=== PATIENT | female | born 1980 | race Caucasian/White ===

== ENCOUNTER 2024-02-18 08:37 | Inpatient (IN) | payer BC, MEDICARE, OTHER ==
[2024-02-18 08:43] LABS: Specific Gravity 1.018 (1.005-1.030)
[2024-02-18] MEDS: Ringers Lactate 1,000 ML IV ONE ×2 (09:30→17:00)
[2024-02-18] MEDS ORDERED: FENTANYL CITR 100 MCG/2 ML ONE (12:02)
[2024-02-18] MEDS ORDERED: propofoL 200 MG/20 ML VIAL IV ONE (12:02)
[2024-02-18] MEDS ORDERED: LIDOCAINE 2% MPF 5 ML VIAL ONE (12:02)
[2024-02-18] MEDS ORDERED: ONDANSETRON 4 MG/2 ML VIAL ONE ×2 (12:02→16:31)
[2024-02-18] MEDS ORDERED: ROCURONIUM 50 MG/5 ML VIAL IV ONE ×2 (12:02→13:30)
[2024-02-18] MEDS ORDERED: MIDAZOLAM HCL 2 MG/2 ML INJ ONE (12:02)
[2024-02-18] MEDS: SUGAMMADEX SODIUM 200 MG/2 ML VIAL IV ONE (12:12)
[2024-02-18] MEDS: HYDROMORPHONE HCL 2 MG/ML inj ONE (12:13)
[2024-02-18] MEDS ORDERED: dexAMETHasone 10 MG/ML VIAL ONE (13:00)
[2024-02-18] MEDS: CEFAZOLIN SODIUM 2 GM/VIAL ONE (13:00)
[2024-02-18] MEDS ORDERED: GLYCOPYRROLATE 0.2 MG/ML SYR ONE (13:03)
[2024-02-18] MEDS ORDERED: Phenylephrine HCl 10 MG/ML 1 ML VIAL ONE (13:12)
[2024-02-18] MEDS ORDERED: EPHEDRINE SULF 50 MG/ML VIAL ONE (13:12)
[2024-02-18] MEDS ORDERED: HYDROMORPHONE HCL 1 MG/ML INJ IV PRN (17:49)
--- NOTE | 2024-02-18 18:30 | P.OP ---
Date of Service: 02/18/24 Preoperative diagnoses: Chronic/persistent E. coli UTI Atrophic left kidney Poorly functioning left kidney, 10% Postoperative diagnoses: Chronic/persistent E. coli UTI Atrophic left kidney Poorly functioning left kidney, 10% Principal procedures: Left laparoscopic simple nephrectomy Indication for procedures: The patient presented to the urology clinic having been seen by an outside urologist with chronic/persistent and recurrent UTIs. She had undergone prior ureteroscopic surgical intervention for obstructive ureterolithiasis, and had persistence of obstruction associated with a proximal left ureteral calculus. During this time, she was noted to have the same E. coli UTI that was occasionally symptomatic. MAG3 Lasix renography demonstrated minimal function at around 10%, and the kidney was significantly atrophic with thinning of the cortex. No evidence of any bladder abnormality or abnormality of her contralateral, right, kidney. As a result, she was counseled by the outside urologist, and I concurred with that opinion, that the kidney was a source likely of chronic infection, and given its poor function, removal of the kidney was her best option. Procedure note: The patient was consented in the preoperative holding area before being transferred to the operative suite where general anesthesia was induced. She was given Ancef 2 g IV antimicrobial prophylaxis, and pneumoboots were provided for DVT prophylaxis. A urethral Baptiste catheter was placed into her bladder, and a OG tube was placed. She was positioned with a neuro gel roll beneath her left flank at the hips, with an axillary roll placed beneath her right axilla. Her arms were placed across to her chest outstretched onto the armboard, cradling a couple of pillows. She was secured using tape to the table, and the table was rotated all the way to the right and then all the way back to the left to ensure she was positioned adequately and not moving. Once we were happy with the positioning, 1010 drapes were used to isolate the region of the abdomen of interest all the way down to the pubic symphysis, beneath the abdominal fat pad, and all the way over to the tip of the 12th rib and above the xiphoid process. ChloraPrep was used to prep the entirety of the area, and towels were used to drape the area off. The remainder of the fluid impermeable drapes were then placed, and the laparoscopic equipment was positioned accordingly. The case has begun using a Veress needle inserted through Crowe's point down through the subcutaneous tissues and the 2 layers of the abdominal aponeuroses in order to gain access into the peritoneal cavity. Aspiration and irrigation using a drop of saline was performed to confirm appropriate positioning of the Veress needle. Then, using CO2 insufflation, appropriate insufflation pressures were obtained at low flow, so we increased the flow to high flow targeting a pressure of 15 mmHg. Once her abdomen adequately distended, the left kidney was targeted by delineating the xiphoid process and the subcostal margin, shifting the traditional laparoscopic port sites over into the lateral aspect of her left upper abdomen. A 5 mm assistant professor of criminal justice trocar site was placed several centimeters beneath the xiphoid under direct vision using a 0 degree 5 mm lens. The remaining 12 mm trocars were placed lateral to the umbilicus and in the left lateral quadrant under direct vision. A few adhesions were noted in the infraumbilical midline but they were not in the way. As a result, the case was begun using the LigaSure and [place] laparoscopic graspers to divide a descending colonic adhesion present in the left upper quadrant. I then divided the line of Toldt taken down into the pelvic region all the way up to the splenic flexure, releasing the colon medially off the anterior surface of Gerota's. The spleen was reflected in the process, and the pancreas was Beneath a thick fat pad. I then continued dissecting the colon and its mesenteric layers off of the anterior surface of Gerota's fascia until the gonadal vessels and ureter was identified to the left kidney. I then elevated the gonadal vein and found the ureter beneath it. I attempted to spare the gonadal vein by creating a hiatus and the tissues above it and bringing the ureter above it through that hiatus, but the gonadal vessel did begin to bleed; so a 5 mm clip school coordinator was used to ligate and divide the gonadal vessel to stop it from bleeding. I then continued to traced the ureter and the gonadal vessels all the way up to the junction of the left renal vein, elevating the kidney posteriorly all the way down to psoas fascia. I then dissected posterior to the renal vein searching for the renal artery. The artery was in a bit of a challenging position just beneath the upper border of the left renal vein and traversing between the branches of the vein which was tripartite. So extensive dissection was required in order to separate and identify the renal artery from the remainder of the veins branches, then I utilized a SHAWNA stapler with a 45 mm vascular load to ligate and divide the renal artery successfully. I then utilized a similar 45 mm vascular load to ligate and divide the left renal vein. Metal clips were applied to the tag end of the divided tissue before dividing the remnant attachment using the LigaSure. I then continued dividing and releasing the adrenal off of the anteromedial aspect of the left kidney, sparing the adrenal in its entirety. I then dissected between the anterior border of the kidney and the inferior border of the pancreatic fat pad, with injury Rhodus fascia on the surface of the kidney superio-medially in order to release the kidney in that location. I dissected this all the way to the anterolateral surface of the kidney before then turning my attention back toward the posterior surface of the kidney. Here I utilized metal clips to ligate, then I divided the ureter using the LigaSure. The lateral attachments to the pelvic sidewall were then divided similarly using the LigaSure until I met the previously dissected superior lateral aspect of the kidney. At this point, the kidney was ostensibly freed; so it was placed in an Endo Catch bag. I then decreased the pressure in the abdomen to 12 mmHg and surveyed the entire dissected space for any sign of active bleeding. No significant bleeding was noted. As a result, I took the patient out of the rotated right lateral decubitus position and essentially placed her near supine so that we might make an infraumbilical incision to extract the kidney. Quarter percent Marcaine was instilled subcutaneously and an incision line was marked to delineate an incision that was subsequently made to be about 8-10 cm in length. This was deepened through significant subcutaneous tissue and fat requiring deep trocars in order to get down to the fascial layers. The fascia was then divided ostensibly in the midline, and the subfascial muscularis layers were in order to visualize the putative midline and then elevated and divide the posterior layer of fascia. The peritoneum was then entered, and the CO2 was then decompressed from within. I then and decreased the size of the incision large enough to be able to insert my hand and and grasp the suture holding the Endo Catch bag, and that I was able to deliver the Endo Catch bag with the kidney inside out of the body. This was sent for pathologic analysis. We then utilized Jennifer clamps, a narrow malleable, and a #1 looped PDS suture in order to reapproximate the divided fascial layers in an en bloc fashion taking both the anterior and posterior layers of fascia. Once this was completed, I then reapproximated the thick layer of fat tissue using interrupted 3-0 Vicryl suture. I placed a Sparks drain beneath the 3-0 suture layer. Before closing the skin, we then reinsufflated the patient's abdomen, and I placed the camera back inside and surveyed the internal abdominal contents for any sign of active bleeding. The pressure used at this point was 8 mmHg. With no bleeding noted, we then increased the pressure back to 15 mmHg, and I utilized #1 PDS suture and a Rogelio Pack closure device in order to reapproximate the 12 mm trocar sites. I then placed some Courtney for added intra-abdominal hemostasis in the nephrectomy bed beneath the spleen, and then the abdomen was decompressed of CO2, and the trocars were removed. The Rogelio Pack sites were tied down successfully, and the skin and subcutaneous tissues were copiously irrigated with saline. Then, the skin was reapproximated using linda. Iodoform gauze was placed over the staple line along with gauze, and the Della drain site was covered with an ABD pad. She was then taken out of the right lateral decubitus position and laid back supine before being awakened from general anesthesia. She was then transferred to a stretcher and then transferred to the recovery room in good condition. Complications: None Discharge disposition: We would like her to follow-up in 10 to 14 days time to have the linda removed. She does live in the [facility]; so if it is difficult for her to return here to have the linda removed, perhaps there is a physician/surgeon there who might be willing to take them out for her. I will endeavor to remove the Sparks drain prior to her discharge, as long as the output overnight is minimal. Subsequent follow-up should then be established as a postop visit, which would then be either in about 10 to 14 days, if she is able to have the linda removed by physician near her home and have her vitals checked at that time. If not, I would like to see her in person. If a surgeon/physician removes her linda, perhaps a virtual visit would suffice.
--- OUTSIDE RECORDS SUMMARY | 2024-02-18 18:38 | XMS REPORT | Continuity of Care Document ---
Author Name Unknown Address [address] [facility] [place] [address] [facility] Address [address] [facility] [address] [place] [address] Care Team Providers Care Sculpture Conservator Name Role Phone DR SABRINA PATTERSON Primary Care Physician UnaPenelope Chau Attending Clinician Unavailable SABRINA PATTERSON Attending Clinician Unavailable Jorge Alberto Vela Attending Clinician Unavailable PAO PEREZ Attending Clinician Unavailable PAO PEREZ Attending Clinician Unavailable PAO PEREZ Admitting Clinician Unavailable Payers Payer Name Policy Type Policy Number Effective Date Expirati on Date Source [facility] 6 [id number] [facility] [id number] 1960 00:00:00 Problems Condition Name Condition Details Condition Category Status Onset Date Resolution Date Last Treatment Date Treating Clinician Comments Source [id number] Recurrent UTI Problem [facility] [id number] Left nephrolith iasis Problem [facility] [id number] Chronic pyelonephr itis Problem [facility] [id number] Left renal atrophy Problem [facility] [id number] Unspecifie d abdominal pain Problem [facility] [id number] Other chronic pain Problem [facility] [id number] Pyelonephr itis Problem [facility] Renal failure syndrome Kidney failure Problem [facility] Allergies, Adverse Reactions, Alerts Allergy Name Allergy Type Status Severity Reaction(s) Onset Date Inactive Date Treating Clinician Comments Source [place] [facility] Active Unknown [facility] (LUF/LI V/SA) Social History Social Habit Start Date Stop Date Quantity Comments Source History of Tobacco Use [facility] Sex Assigned At [facility] Smoking Status Start Date Stop Date Source Never smoker [facility] (LUF/JOIE/SA) Medications Ordered Medication Name Filled Medication Name Start Date Stop Date Current Medication? Ordering Clinician Indication Dosage Frequency Signature (SIG) Comments Components Source ibuprofen 800 MG Oral Tablet ibuprofen 800 MG Oral Tablet 08-22 14:59: 05 No pain 800mg 4xD orally 4 times per day for pain as needed. (as needed for [facility] cyclobenzap rine 10 mg tablet cyclobenzap rine 10 mg tablet 08-22 14:59: 03 No Muscle spasm 10mg 3xD orally 3 times per day for Muscle spasm as needed. (for muscle spasms) [facility] (LUF/LI V/SA) pantoprazol e 40 MG Delayed Release Oral Tablet pantoprazol e 40 MG Delayed Release Oral Tablet 08-22 14:44: 24 No 40mg 1xD orally daily [facility] l (LUF/LI V/SA) No Known Medications No Known Medications No [facility] Vital Signs Vital Name Observation Time Observation Value Comments S ource height 2023-12-27 13:45:00 61 [in_i] [facility] weight 2023-12-27 13:45:00 280 [lb_av] [facility] temperature 2023-12-27 13:45:00 97.0 [degF] Com mon [facility] bmi 2023-12-27 13:45:00 52.9 kg/m2 [facility] oximetry 2023-12-27 13:45:00 99 % [facility] respiratory rate 2023-12-27 13:45:00 18 /min [facility] blood pressure systolic 2023-12-27 13:45:00 125 mm[Hg] [facility] blood pressure diastolic 2023-12-27 13:45:00 76 mm[Hg] Common [facility] Height 2023-08-23 13:42:00 154.94 CM Weight 2023-08-23 13:42:00 130.5 KG height 2022-10-11 08:15:00 61 [in_i] [facility] weight 2022-10-11 08:15:00 285 [lb_av] Comm on [facility] bmi 2022-10-11 08:15:00 53.84 kg/m2 [facility] height 2022-09-07 15:00:00 61 [in_i] [facility] weight 2022-09-07 15:00:00 285 [lb_av] [facility] temperature 2022-09-07 15:00:00 98.6 [degF] Com mon [facility] bmi 2022-09-07 15:00:00 53.84 kg/m2 [facility] oximetry 2022-09-07 15:00:00 99 % [facility] respiratory rate 2022-09-07 15:00:00 18 /min [facility] blood pressure systolic 2022-09-07 15:00:00 147 mm[Hg] Common [facility] blood pressure diastolic 2022-09-07 15:00:00 82 mm[Hg] Common [facility] height 2022-06-15 14:30:00 61 [in_i] [facility] weight 2022-06-15 14:30:00 287 [lb_av] [facility] temperature 2022-06-15 14:30:00 97.1 [degF] Com mon [facility] bmi 2022-06-15 14:30:00 54.22 kg/m2 [facility] oximetry 2022-06-15 14:30:00 96 % [facility] respiratory rate 2022-06-15 14:30:00 18 /min [facility] blood pressure systolic 2022-06-15 14:30:00 114 mm[Hg] [facility] blood pressure diastolic 2022-06-15 14:30:00 77 mm[Hg] [facility] Heart Rate 2023-08-23 14:46:00 73 /min Replaced by [facility] (LUF/JOIE/SA) Pulse Rate 2023-08-23 14:46:00 72 /min Replaced by [facility] (LUF/JOIE/SA) Respiratory Rate 2023-08-23 14:46:00 11 /min [facility] (F/JOIE/SA) O2% BldC Oximetry 2023-08-23 14:46:00 100 % [facility] (LUF/JOIE/SA) BP Systolic 2023-08-23 14:33:00 149 mm[Hg] [facility] (LUF/JOIE/SA) BP Diastolic 2023-08-23 14:33:00 61 mm[Hg] [facility] (LUF/JOIE/SA) Body Temperature 2023-08-23 13:42:00 98.1 [degF] [facility] (LUF/JOIE/SA) Height 2023-08-23 13:42:00 61 [in_i] Replaced by [facility] (F/JOIE/SA) Weight 2023-08-23 13:42:00 130.5 kg Replaced by [facility] (LUF/JOIE/SA) BMI (Body Mass Index) 2023-08-23 13:42:00 55 kg/m2 [facility] (LUF/JOIE/SA) Procedures Procedure Date / Time Performed Performing Clinicia n Source PVR 2023-12-27 00:00:00 [facility] PVR 2022-06-15 00:00:00 [facility] Encounters Start Date/Time End Date/Time Encounter Type Admission Type Attending [facility] Care Facility Care Department Encounter ID Source 2023-05-31 10:21:00 Outpatient Penelope Mcdaniels [facility] [id number] [facility] 2023-05-13 08:02:00 [facility] [id number] [facility] 2022-12-24 13:20:01 Out[facility] [id number] [facility] 2022-11-07 16:39:00 Out[facility] [id number] [facility] 2022-11-05 12:00:00 Outpatient [facility] [id number] [facility] 2022-06-15 11:11:01 Out[facility] [id number] [facility] 2023-12-30 00:00:00 2023-12-30 00:00:00 (TEL) [facility] [id number] [facility] 2023-12-27 00:00:00 2023-12-27 00:00:00 OFFICE VISIT ESTAB PT LEVEL 3 [facility] STLC [id number] [facility] 2023-08-23 13:39:00 2023-08-23 14:43:00 CONTUS RT FRONT WALL THORAX INITIAL 1 PAO PEREZ JUAN STLML EMD [id number] [facility] (LUF/LI V/SA) 2023-08-23 00:00:00 2023-08-23 00:00:00 Inpatient [facility], [address] [place] [address] [address], [place] [address] [facility] [id number] [facility] (LUF/LI V/SA) 2023-08-23 00:00:00 2023-08-23 00:00:00 [facility]patient [facility] YONY Shahram, [address] [facility], [place] [address] [facility] [id number] [facility] (LUF/LI V/SA) 2023-01-28 00:00:00 2023-01-28 00:00:00 OFFICE VISIT ESTAB PT LEVEL 3 STLMLC STLMLC [id number] [facility] 2022-12-14 00:00:00 2022-12-14 00:00:00 OFFICE VISIT ESTAB PT LEVEL 4 STLMLC STLMLC [id number] [facility] 2022-11-07 00:00:00 2022-11-07 00:00:00 OFFICE VISIT ESTAB PT LEVEL 3 [facility]LMLC STLMLC [id number] [facility] 2022-11-05 00:00:00 2022-11-05 00:00:00 (TEL) STLMLC STLMLC [id number] [facility] 2022-10-11 00:00:00 2022-10-11 00:00:00 OFFICE VISIT ESTAB PT LEVEL 4 STLMLC STLMLC [id number] [facility] 2022-09-07 00:00:00 2022-09-07 00:00:00 OFFICE VISIT ESTAB PT LEVEL 3 STLMLC STLMLC [id number] [facility] 2022-06-20 00:00:00 2022-06-20 00:00:00 (TEL) STLMLC STLMLC [id number] [facility] 2022-06-20 00:00:00 2022-06-20 00:00:00 (TEL) STLMLC STLMLC [id number] [facility] 2022-06-15 00:00:00 2022-06-15 00:00:00 OFFICE VISIT NEW PT LEVEL 4 [facility]LMLC [facility] [id number] [facility] Results Test Description Test Time Test Comments Results Resul t Comments Source CT CHEST W/O CONTRAST 2023-08-23 14:31:33 [facility] (LUF/JOIE/SA)Name: LIZZ GOTTI : 1980 Sex: F Procedure: CT CHEST W/O CONTRASTOrder date: 08/23/2023 1:55 PMOrdering Provider: GASTON Waltoninical Indication: Chest pain after traumaComparison: NoneTechnique: Using a multislice scanner, sequential axial imaging was obtained inthe thorax from the level of the thoracic inlet through the lung bases. The examwas obtained without the administration of IV contrast. 2D sagittal and coronalreconstructed images were obtained.This exam was performed according to the our departmental dose-optimizationprogram which includes automated exposure control, adjustment of the mA and/orkV according to patient size and/or use of iterative reconstruction techniques.FINDINGS:Ther e are no pulmonary masses or nodules.There is no alveolar or interstitial infiltrate.There are no pleural effusions.Cardiac size is normal.There is no pericardial effusion.Aorta and pulmonary arteries are grossly unremarkable. No aneurysm seen.There are no significant coronary artery calcificationsThere is no supraclavicular or axillary lymphadenopathy.There is no mediastinal, hilar, or subcarinal lymphadenopathy.There are no acute skeletal abnormalities.IMPRESSION 1. Negative noncontrast CT scan of the chest.This final report was electronically signed by Dr Melvi Hernandez MD :26 PMDictated By: MELVI HERNANDEZDate: 08/23/2023 14:[address] [facility] [address] HEAD W/O CONTRAST 2023-08-23 14:28:33 [facility]Name: LIZZ GOTTI : 1980 Sex: F Procedure: CT HEAD W/O CONTRASTOrder date: 08/23/2023 1:55 PMOrdering Provider: GASTON Waltoninical Indication: Headache after traumaComparison: NoneTechnique: Using a helical scanner, sequential axial imaging of the brain wasobtained without the administration of intravenous contrast. The exam wasobtained from the skull base to vertex.This exam was performed according to the our departmental dose-optimizationprogram which includes automated exposure control, adjustment of the mA and/orkV according to patient size and/or use of iterative reconstruction techniques.Findings:Norm al-appearing couch and white matter with appropriate sulcation and normalparenchymal volume.There is no midline shift or hydrocephalus.There is no acute intracranial hemorrhage or mass effect.There is no CT evidence for acute cortical infarct.The calvarium is intact. There is no fracture.There is no lytic or sclerotic lesion.IMPRESSION:1. Negative CT scan of the brain without intravenous contrast administration.This final report was electronically signed by Dr Melvi Hernandez MD 42:23 PMDictated By: MELVI HERNANDEZDate: 08/23/2023 14:23 [facility]
[2024-02-18] MEDS: CEFAZOLIN 1 GM in NA CHLORIDE 0.9% 50 ML IVPB SCH (21:18)
[2024-02-18] MEDS: Ringers Lactate 1,000 ML IV SCH (21:19)
[2024-02-18] MEDS: HYDROMORPHONE HCL 1 MG/ML INJ IV PRN (21:19)
[2024-02-18 22:13] VITALS: BMI 50.8
[2024-02-19] MEDS: HEPARIN 5000 UNIT/ML 1 ML VIAL SQ SCH (00:26)
[2024-02-19] MEDS: ONDANSETRON 4 MG/2 ML VIAL IV PRN (03:17)
[2024-02-19 04:39] LABS: Absolute Lymphocytes (CBC) 0.7 K/uL (0.7-4.9); Absolute Monocytes 0.5 K/uL (0.1-1.3); Absolute Neutrophil 8.9 K/uL (1.8-8.0); Basophils % 0.1 % (0-1.3); Hematocrit 25.9 % (36.0-45.0); Hemoglobin 7.9 g/dL (12.0-15.0); MCH 20.8 pg (27.0-35.0); MCHC 30.5 g/dL (32.0-36.0); MCV 68.1 fL (80-100); MPV 8.8 fL (7.6-11.3); Monocytes % 5.3 % (3.3-12.3); Neutrophils % 87.6 % (41.7-73.7); Platelets 257 thou/uL (152-406); Red Cell Distribution Width 19.6 % (12.1-15.2)
[2024-02-19 04:53] LABS: Anion Gap 9.4 mEq/L (5.0-15.0); Potassium 4.4 mEq/L (3.5-5.1)
[2024-02-19 05:10] LABS: Band Neutrophils 3 % (0-1); Differential Total Cells Count 100; Lymphocytes 7 % (15-42); Monocytes 1 % (0-10); Segmented Neutrophils 89 % (40-80)
[2024-02-19 05:11] LABS: Blood Morphology Comment NOTED (NOT SEEN); Hypochromasia 1+; Microcytosis 1+; Platelet Estimate ADEQ
[2024-02-19] MEDS: MAGNESIUM HYDROXIDE 8% 30 ML PO SCH (09:04)
[2024-02-19] MEDS: BISACODYL 10 MG RECTAL SUPP PR SCH (09:04)
[2024-02-19] MEDS: Ringers Lactate 1,000 ML IV SCH ×2 (09:05→20:50)
[2024-02-19] MEDS: HYDROMORPHONE HCL 0.5 MG/0.5 ML INJ IV PRN (09:17)
[2024-02-19] MEDS: TRAMADOL HCL 50 MG TAB PO PRN (13:45)
[2024-02-19 16:06] VITALS: O2SAT 96
[2024-02-19] MEDS ORDERED: HEPARIN 5000 UNIT/ML 1 ML VIAL SQ SCH (20:00)
--- NOTE | 2024-02-19 20:56 | P.PN ---
Subjective Date of Service: 02/19/24 Chief Complaint: POD #1 s/p left lap simple nephrectomy Subjective: Doing well expected post-op pain but no N/V, in fact hungry, at 7:50AM. No flatus as of 8:45PM. Pain controlled with Tramadol. Voiding. Review of Systems Musculoskeletal: Pedal edema Physical Examination - Vital Signs Temperature: 98.9 F Blood Pressure: 142/68 Pulse: 77 Respirations: 16 Pulse Ox (%): 98 - Physical Exam General: Alert, In no apparent distress, Oriented x3, Cooperative HEENT: Atraumatic, Normocephalic, PERRLA, Mucous membr. moist/pink Respiratory: Normal air movement Gastrointestinal: Soft and benign, Non-distended, No rebound, No guarding, Tenderness (appropriate) Neurological: Normal speech Urinary: Baptiste catheter (clear yellow urine) - Studies Laboratory Data (last 24 hrs) 02/19/24 02/19/24 04:19 04:19 WBC 10.10 Hgb 7.9 L Hct 25.9 L Plt Count 257 Sodium 139 Potassium 4.4 BUN 12 Creatinine 1.12 H Glucose 136 H Assessment And Plan - Current Problems (Diagnosis) (1) Atrophic kidney, acquired Current Visit: Yes Status: Acute (2) Chronic UTI Current Visit: Yes Status: Acute (3) Left nephrolithiasis Current Visit: Yes Status: Acute (4) S/p nephrectomy Current Visit: Yes Status: Acute - Plan POD #1 s/p left laparoscopic simple nephrectomy for chronically infected, minimally functional, atrophic left kidney with history of obstructive nephroureterolithiasis recurrent, doing well -pain controlled and voiding, but no flatus as of yet. -Patient not quite comfortable for discharge tonight and requests to remain inpatient for 1 additional night -Wean IV fluids to 84 cc/h as of 8 AM, KVO IV fluids as of 8:45 PM -Discontinue IV Dilaudid -Continue tramadol as needed -Toradol 15 mg IV every 6 hours scheduled -Continue a.m. milk of magnesia and Dulcolax suppository -A.m. labs Discharge Plan: Home Plan to discharge in: 24 Hours - Code Status/Comfort Care Code Status: Full Code Critical Care: No Time Spent Managing PTS Care (In Minutes): 35
[2024-02-19] MEDS: KETOROLAC 30 MG/ML INJ IV SCH (21:04)
[2024-02-20 04:17] VITALS: BP 138/61; TEMP 97.6
--- NOTE | 2024-02-20 08:21 | P.DS ---
Admission Date: 02/19/24 Discharge Date: 02/20/24 Disposition: ROUTINE DISCHARGE Discharge Condition: GOOD Reason for Admission: s/p left lap simple nephrectomy Procedures: Left laparoscopic nephrectomy - Problems (1) Atrophic kidney, acquired Current Visit: Yes Status: Acute (2) Chronic UTI Current Visit: Yes Status: Acute (3) Left nephrolithiasis Current Visit: Yes Status: Acute (4) S/p nephrectomy Onset Date: ~02/18/24 Current Visit: Yes Status: Acute Brief History of Present Illness: 43-year-old woman with GERD and obesity presented to urology clinic with a chronic infected and atrophic left kidney with associated nephrolithiasis and obstruction. She had undergone multiple surgical procedures, but it appears the kidney was irreversibly damaged. She had a chronic E. coli UTI refractory to multiple attempts and antimicrobial therapy. After studies demonstrated minimal function of that remaining kidney but persistence of significant stone burden, the recommendation was simple nephrectomy. Hospital Course: She underwent uncomplicated left laparoscopic simple nephrectomy 02/18/2024. She was ambulating and tolerating a diet 02/19/24. She was voiding once the catheter was removed. Her pain was controlled with oral tramadol. She passed flatus by the morning of 02/20/2024 and was thus eligible for discharge. The Della drain was removed and the wound was assessed to be in good condition. Vital Signs/Physical Exam: Temp Pulse Resp BP Pulse Ox 97.6 F 80 17 138/61 95 02/20/24 04:00 02/20/24 04:00 02/20/24 04:00 02/20/24 04:00 02/20/24 04:00 General: Alert, In no apparent distress, Oriented x3, Cooperative HEENT: Atraumatic, Normocephalic, PERRLA, Mucous membr. moist/pink Respiratory: Normal air movement Gastrointestinal: Soft and benign, Non-distended, No rebound, No guarding, Other (Incision clean, dry, intact with linda), Tenderness (Appropriate) Neurological: Normal gait, Normal speech, Normal strength at 5/5 x4 extr Laboratory Data at Discharge: WBC 10.10 thou/uL (4.3-10.9) 02/19/24 04:19 Hgb 7.9 g/dL (12.0-15.0) L 02/19/24 04:19 Hct 25.9 % (36.0-45.0) L 02/19/24 04:19 Plt Count 257 thou/uL (152-406) 02/19/24 04:19 Sodium 139 mEq/L (136-145) 02/19/24 04:19 Potassium 4.4 mEq/L (3.5-5.1) 02/19/24 04:19 BUN 12 mg/dL (7-18) 02/19/24 04:19 Creatinine 1.12 mg/dL (0.55-1.02) H 02/19/24 04:19 Glucose 136 mg/dL (74-106) H 02/19/24 04:19 Home Medications: Pantoprazole [Protonix Tab*] 40 mg PO DAILY 02/18/24 Smz./Tmp. [Bactrim Ds 800 MG/160 MG*] 1 tab PO BID 02/18/24 traMADol HCL [Ultram*] 50 mg PO Q6H PRN #20 tab 02/19/24 New Medications: traMADol HCL [Ultram*] 50 mg PO Q6H PRN #20 tab PRN Reason: Pain Scale 5-7 (Moderate) Physician Discharge Instructions: Take care to avoid any contact injury that might damage your solitary remaining right kidney. Avoid straining or heavy lifting -- nothing more than around 15 pounds, for the first 6 weeks following surgery. After 6 weeks, until 3 months from surgery, it is reasonable to lift up to 30 to 50 pounds, as long as no excessive straining is required. After 3 months, you should be able to resume all routine physical activities. Sponge bathe for the next 2 days. After that, you may shower. You may apply some Neosporin/triple antibiotic ointment to the incision lines. If you have some drainage from one of the incision lines, particularly the lower abdominal incision line/staple line, it is okay to temporarily place some gauze to collect that drainage to keep it from getting in your clothes. Otherwise, try to leave the wounds exposed to air. Dietary advice minutes: You may have a normal diet, but please take care to avoid lots of salty, sugary, or fatty foods. What is healthy for your heart is healthy for your remaining kidney. We will arrange some additional testing when I see you as an outpatient to see what caused you to form so many kidney stones in your left kidney to prevent that from occurring with your right kidney. Also, maintaining your blood pressure in a normal range is important to preserving your kidney. Please arrange follow-up with your primary care physician within the next few weeks after discharge so that he/he may reassess any physiologic changes your body may have undergone since the removal of the kidney and adjust any medications accordingly. You are anemic prior to the surgery. I sent prescriptions for iron, multivitamin and folic acid to your pharmacy to begin taking prior to surgery. You should continue taking that after surgery and follow-up with your primary care doctor to decipher the underlying cause of your chronic anemia. I have sent a prescription for tramadol, which you may take every 6 hours as necessary for more significant pain. If you do not require the tramadol, you may take ibuprofen/Motrin up to 400 mg every 8 hours as needed for the pain. You have a listed allergy to acetaminophen/Tylenol, which is unusual. If you do not have a true allergy to the acetaminophen/Tylenol, I would recommend alternating the acetaminophen/Tylenol every 4 hours with the ibuprofen/Motrin. Notify me, Dr. Baird, if you develop any fever (temperature over 100.4 Fahrenheit), intractable nausea or vomiting, increasing pain not controlled by pain medications, or any abnormal redness/swelling or discharge from the inc ision sites. Contact my office to arrange follow-up to have the linda removed in approximately 2 weeks. All the best! WBR Diet: Renal Activity: No lifting more than 10 lbs Followup: Reginaldo Baird [ACTIVE - CAN ADMIT] - Time spent managing pt's care (in minutes): 25
[2024-02-20 08:34] LABS: Absolute Basophils 0.1 K/uL (0-0.5); Absolute Eosinophils 0.1 K/uL (0-0.5); Absolute Lymphocytes (CBC) 1.8 K/uL (0.7-4.9); Absolute Monocytes 0.6 K/uL (0.1-1.3); Absolute Neutrophil 4.8 K/uL (1.8-8.0); Basophils % 0.9 % (0-1.3); Hematocrit 24.9 % (36.0-45.0); Hemoglobin 7.5 g/dL (12.0-15.0); Lymphocytes % 24.7 % (15.3-44.8); MCH 20.9 pg (27.0-35.0); MCHC 30.2 g/dL (32.0-36.0); MCV 69.1 fL (80-100); MPV 8.8 fL (7.6-11.3); Monocytes % 7.7 % (3.3-12.3); Neutrophils % 65.7 % (41.7-73.7); Platelets 226 thou/uL (152-406); Red Cell Distribution Width 20.6 % (12.1-15.2)
[2024-02-20 08:52] LABS: Anion Gap 5.2 mEq/L (5.0-15.0); Potassium 4.2 mEq/L (3.5-5.1)
--- NOTE | 2024-02-28 16:34 | EKG ---
Test Date: 2024-02-18 Test Time: 09:28:52 [employer] Superintendent: YOSELIN MEASUREMENT RESULTS: Intervals: Rate: 51 IN: 158 QRSD: 90 QT: 460 QTc: 423 [place]: P: 66 IN: 158 QRS: 69 T: 61 INTERPRETIVE STATEMENTS: Sinus bradycardia Otherwise normal ECG No previous ECG available for comparison Electronically Signed On 02-28-24 16:12:50 TAR MAN by Jose Antonio Ruffin
== END 2024-02-20 09:41 | disposition home or self-care (01) | DRG 660 ==
LOC: OR 08:37 → 2ND 17:49 → OBSVTOIN 02-19 20:47
PROVIDERS: ADMIT Urology; ATTEND Urology
PROC: 0TT14ZZ Resection of Left Kidney, Percutaneous Endoscopic Approach (ICD-10-PCS; principal; 2024-02-18 10:45)
PROC: 0T9B70Z Drainage of Bladder with Drainage Device, Via Natural or Artificial Opening (ICD-10-PCS; 2024-02-19)
DX: N26.1 Atrophy of kidney (terminal) (principal); N39.0 Urinary tract infection, site not specified; Z68.43 Body mass index [BMI] 50.0-59.9, adult; E66.9 Obesity, unspecified; N18.6 End stage renal disease; D63.1 Anemia in chronic kidney disease; N20.0 Calculus of kidney; K21.9 Gastro-esophageal reflux disease without esophagitis; B96.20 Unspecified Escherichia coli [E. coli] as the cause of diseases classified elsewhere; Z79.899 Other long term (current) drug therapy
CPT/HCPCS: 36415; 80048; 81025; 85025; 88307; 93005; G0378; G0379; J0690; J1100; J1171; J1644; J2003; J2250; J2371; J2405; J2704; J3010; J7120